=== PATIENT | male | born 1965 | race African-American/Black ===

== ENCOUNTER 2025-01-10 14:34 | Emergency (ER) | payer BC, SELFPAY ==
--- NOTE | ~2025-01-10 | XR_ITS ---
EXAMINATION: XR knee LT min 4V, 01/10/2025 15:00 CDT HISTORY: knee pain no injury COMPARISON: No comparisons available. Findings: No acute fracture or malalignment. Moderate joint effusion Soft tissues unremarkable. Impression: No acute fracture or malalignment. Reviewed, dictated and finalized at location P. Impression: No acute fracture or malalignment.
[2025-01-10 14:46] VITALS: BP 130/85; PULSE 82; RESP 16; TEMP 36.9; O2SAT 98
--- NOTE | 2025-01-10 14:57 | ED.LOWEXIN ---
HPI - Extremity Injury (Lower) General Chief Complaint: Extremity Injury, Lower Stated Complaint: L KNEE SWELLING Time Seen by Provider: 01/10/25 14:50 Source: patient Mode of arrival: ambulatory Limitations: no limitations History of Present Illness HPI Narrative: Carlos is a 59-year-old male patient presenting to the clinic today with complaints of left knee pain and swelling x3 weeks. He reports he was seen at another urgent care and thought to have gout. They sent him in a prescription for prednisone and colchicine. He states when he was on those medications the swelling went down. Is reporting pain to the left lateral knee-has worse pain with trying to ambulate/bearing weight and with flexion and extension of the knee. States he cannot fully extend his knee due to pain. Has moderate amount of swelling to the left knee when compared to the right. No known injury to his knee. States he 1st developed pain when he was golfing and walking a long distance over the weekend prior to the swelling and pain. Has been taking Tylenol for pain. Last dose of Tylenol was last night. Related Data Home Medications ?Medication ?Instructions ?Recorded ?Confirmed ?Last Taken ?Type atorvastatin 40 mg tablet mg 01/10/25 Unknown History lisinopril 30 mg tablet mg 01/10/25 Unknown History losartan 50 mg tablet mg 01/10/25 Unknown History metformin 500 mg tablet mg 01/10/25 Unknown History Allergies Allergy/AdvReac Type Severity Reaction Status Date / Time No Known Allergies Allergy Verified 01/10/25 14:58 [facility] Comments At the time of my signature, I reviewed and agree with the nursing past medical, surgical, social, and family history. There is no relevant family history pertinent to the patient complaint. Exam Narrative: General: Well-developed, obese, in no apparent distress Head: Normocephalic, atraumatic. Cardio: Regular rate and rhythm, s1 and s2 normal, no murmur appreciated. Resp: Clear to auscultation bilaterally, no rhonchi, rales, wheezing or rubs. Musculoskeletal: No deformity, moderate swelling over the left knee when compared to the right, tender to palpation over the LCL, pain with valgus and varus testing over the LCL, cannot fully extend or flex the left knee due to pain and swelling, muscle strength strong and equal, peripheral pulse strong, no edema, no cyanosis, limping gait and station Course Course Emergency Course: Portions of this record may have been created with voice recognition software. Level of Care: Express Care Visit Vital Signs Vital signs: Vital Signs Temperature 36.9 C 01/10/25 14:46 Pulse Rate 82 01/10/25 14:46 Respiratory Rate 16 01/10/25 14:46 Blood Pressure 130/85 01/10/25 14:46 Pulse Oximetry 98 01/10/25 14:46 Temperature 36.9 C 01/10/25 14:46 Pulse Rate 82 01/10/25 14:46 Respiratory Rate 16 01/10/25 14:46 Blood Pressure 130/85 01/10/25 14:46 Pulse Oximetry 98 01/10/25 14:46 Vital signs reviewed MDM - Extremity Injury (Lower) MDM Narrative Medical decision making narrative: At the time of visit patient is resting comfortably on the exam table. Patient appears to be nontoxic. Complaints of left knee pain and swelling x3 weeks. He reports he was seen at another urgent care and thought to have gout. They sent him in a prescription for prednisone and colchicine. He states when he was on those medications the swelling went down. Is reporting pain to the left lateral knee-has worse pain with trying to ambulate/bearing weight and with flexion and extension of the knee. States he cannot fully extend his knee due to pain. Has moderate amount of swelling to the left knee when compared to the right. No known injury to his knee. States he 1st developed pain when he was golfing and walking a long distance over the weekend prior to the swelling and pain. Has been taking Tylenol for pain. Last dose of Tylenol was last night. On exam patient has moderate swelling over the left knee when compared to the right, tender to palpation over the LCL, pain with valgus and varus testing over the LCL, cannot fully extend or flex the left knee due to pain and swelling. X-ray of the left knee was ordered. Diagnostics: X-ray of the left knee was performed and was negative for any sign of fracture or malalignment. Does show a moderate knee effusion. Plan: I suspect patient likely has a left collateral ligament strain with moderate joint effusion. Prescription for naproxen was sent to the pharmacy. Recommend using a hinged knee brace to ambulate. Offered crutches and patient declined at this time. Supportive measures were discussed with the patient and they voiced understanding discharge instructions and agrees to treatment plan. Return precautions reviewed Differential Diagnosis Differential diagnosis: Likely acute internal derangement of knee and other (Knee sprain, knee contusion, soft tissue injury, knee effusion) Discharge Plan Discharge Clinical Impression: Effusion of knee joint, left Sprain of knee, lateral collateral ligament Qualifiers: Encounter type: initial encounter Laterality: left Qualified Code(s): S83.422A - Sprain of lateral collateral ligament of left knee, initial encounter Patient Disposition: Home Condition: Stable Instructions: Antibiotic Form, Knee Sprain (ED), Swollen Knee Joint (ED) Additional Instructions: X-ray of the left knee shows no acute fracture or malalignment but you do have a moderate joint effusion Rest, ice, elevate, and wear marquez wrap as directed Prescription for naproxen was sent to the pharmacy. Tylenol for pain as discussed. Gradually bear weight May wear hinged knee brace as discussed when up walking No running or sports until healed. Follow up with your PCP in 3-5 days-May need ortho referral-further imaging such as CT or MRI Patient Language: Turkish Prescriptions: New naproxen 500 mg tablet 500 mg PO BID PRN (Reason: pain) 7 Days Qty: 14 0RF No Action losartan 50 mg tablet atorvastatin 40 mg tablet metformin 500 mg tablet lisinopril 30 mg tablet Follow-up/Referrals: Jomar,Shad [Other] Time of Disposition: 15:20 Quality NIHSS Nursing Documentation ED NIHSS nursing documentation: reviewed/agree
== END 2025-01-10 15:26 | disposition home or self-care (01) ==
PROVIDERS: Emergency Provider Nurse Practitioner Family
DX: M25.462 Effusion, left knee (principal); S83.422A Sprain of lateral collateral ligament of left knee, initial encounter; X58.XXXA Exposure to other specified factors, initial encounter; E78.00 Pure hypercholesterolemia, unspecified
CPT/HCPCS: 73564; 99203; G0463